=== PATIENT | female | born 1955 ===

== ENCOUNTER 2017-01-20 12:01 | Inpatient (IN) | payer OTHER, MEDICAID ==
--- NOTE | 2017-01-20 12:25 | ED PDOC ---
Arrival/HPI - General Chief Complaint: Chest Pain Time Seen by Provider: 01/20/17 12:07 Historian: Patient - History of Present Illness Narrative History of Present Illness (Text): 01/20/17 12:24 Patient is a 61 year old female whose past medical history includes pulmonary embolism, asthma, bronchitis, IVC filter placed last January, not on blood thinners , sent to the emergency department by PMD for evaluation of intermittent chest and back discomfort with shortness of breath for the past 3 days. Patient states it feels like a "ball going up and down" her chest and back. Patient notes some cough. She states this feels similar to her previous clot symptoms. Patient also reports nosebleed yesterday which resolved on its own. No other complaints at this time. PMD: Dr. Leung Time/Duration: < week Symptom Onset: Gradual Symptom Course: Intermittent Modifying Factors (Text): None Past Medical History - Provider Review Nursing Documentation Reviewed: Yes - Cardiac Hx Cardiac Disorders: Yes Other/Comment: MITRAL VALVE PROLAPSE - Pulmonary Hx Respiratory Disorders: Yes (PULMONARY EMBOLISM) - Neurological Hx Neurological Disorder: Yes Other/Comment: HX HEADACHES - HEENT Other/Comment: right torn retina - Endocrine/Metabolic Hx Endocrine Disorders: Yes Other/Comment: laisha's thyroid disease - Musculoskeletal/Rheumatological Hx Musculoskeletal Disorders: Yes Other/Comment: LEFT LEG EDEMA - Genitourinary/Gynecological Other/Comment: uterine mass - removed - Psychiatric Hx Substance Use: No - Surgical History Other/Comment: FIBROID TUMOR REMOVED - Anesthesia Hx Anesthesia: Yes Hx Anesthesia Reactions: No Hx Malignant Hyperthermia: No - Suicidal Assessment Feels Threatened In Home Enviroment: No Family/Social History - Physician Review Nursing Documentation Reviewed: Yes Family/Social History: Unknown Family HX Smoking Status: Former Smoker Hx Alcohol Use: No Hx Substance Use: No Allergies/Home Meds Allergies/Adverse Reactions: Allergies No Known Allergies Allergy (Verified 06/05/16 11:18) Home Medications: Home Meds Medication Instructions Recorded Confirmed Unobtainable 01/20/17 01/20/17 Review of Systems - Review of Systems Eyes: absent: Vision Changes ENT: absent: Hearing Changes Respiratory: SOB, Cough Cardiovascular: Chest Pain Gastrointestinal: absent: Abdominal Pain, Vomiting Genitourinary Female: absent: Dysuria, Frequency, Hematuria Musculoskeletal: Back Pain Skin: absent: Rash Neurological: absent: Headache Endocrine: absent: Diaphoresis Psychiatric: absent: Anxiety Physical Exam - Physical Exam Narrative Physical Exam (Text): Head: Atraumatic. Normocephalic. Eyes: PERRL. EOMI. Conjunctivae are not pale. ENT: Mucous membranes are moist and intact. Oropharynx is clear and symmetric. Neck: Supple. Full ROM. No JVD. No lymphadenopathy. Cardiovascular: Regular rate. Regular rhythm. No murmurs, rubs, or gallops. Distal pulses are 2+ and symmetric. Pulmonary/Chest: No evidence of respiratory distress. Mild expiratory wheeze. No rales or rhonchi. Abdominal: Soft and non-distended. There is no tenderness. No rebound, guarding, or rigidity. No organomegaly. Good bowel sounds. Back: No CVA tenderness. Extremities: No edema. No cyanosis. No clubbing. Full range of motion in all extremities. No calf tenderness. Skin: Skin is warm and dry. No petechiae. No purpura. Neurological: Alert, awake, and oriented to person, place, time, and situation. Normal speech. Psychiatric: Good eye contact. Normal interaction, affect, and behavior. Vital Signs Reviewed: Yes Vital Signs Temp Pulse Resp BP Pulse Ox 01/20/17 12:08 98.1 F 69 20 137/83 98 Temperature: Afebrile Blood Pressure: Normal Pulse: Regular Respiratory Rate: Normal Appearance: Positive for: Well-Appearing, Non-Toxic Pain Distress: None Mental Status: Positive for: Alert and Oriented X 3 Medical Decision Making ED Course and Treatment: Differential Diagnosis include but are not limited to: Pulmonary embolism vs aortic dissection vs coronary artery disease vs asthma Plan: Patient states she has had a IVC filter placed last January. Patient currently not hypoxic or tachycardic, although she has a prior history of PE, so will obtain CT emergently. Prior Visits: Notes and results from previous visits were reviewed. Patient was seen in the ED on 09/05/14 for shortness of breath and admitted for pulmonary embolism. As per previous notes, patient has a past medical history that includes deep vein thrombosis, pulmonary embolism, mitral valve prolapse, asthma, bronchitis, and pulmonary edema LAB RESULTS: Glucose 94 BUN 16 CREATININE 0.7 SODIUM 142 POTASSIUM 3.8 LDH 399 CPK 56 TROPONIN I <0.01 Progress Notes: PROCEDURE: CT Chest with contrast (Pulmonary Angiogram) Administrative Nursing Supervisor : Sherman Pena MD Report Date : 01/20/2017 13:49:32 IMPRESSION: No evidence of pulmonary embolism. Evaluation of lower lobe subsegmental artery branches is limited by respiratory motion artifact. Incidental stable 3.8 cm right adrenal mass, likely adrenal adenoma. Stable 9 mm high attenuation left upper pole renal mass. Correlation with ultrasound examination is advised on a nonemergent basis. Small calculus identified in cystic duct, nonobstructing. No additional abnormality. 01/20/17 14:03 Patient will be given nebulizer as she is noted to have mild wheezing. As she has had 3 day history of chest pain and shortness of breath, will admit to telemetry observation for further cardiac workup. Case discussed with Dr. Leung. Will consult Dr. Conn who has seen her in the past and Dr. Durham. - Lab Interpretations Lab Results: 01/20/17 12:20 Lab Results 01/20/17 12:20: WBC 5.6, RBC 5.14, Hgb 13.9, Hct 42.2, MCV 82.1, MCH 27.0, MCHC 32.9, RDW 14.4, Plt Count 240, MPV 9.2, Gran % 68.4 H, Lymph % (Auto) 23.7, Pocahontas % (Auto) 6.3 H, Eos % (Auto) 1.4 L, Baso % (Auto) 0.2, Gran # 3.81, Lymph # 1.3, Pocahontas # 0.4, Eos # 0.1, Baso # 0.01 - RAD Interpretation Radiology Orders: 01/20/17 12:11 ANGIO CHEST PE PROTOCOL [CT] Stat CHEST PORTABLE [RAD] Stat - EKG Interpretation EKG Interpretation (Text): 01/20/17 13:19 EKG at 12:11 normal sinus rhythm rate of [address] elevations Interpreted by ED Physician: Yes Type: 12 lead EKG - Medication Orders Current Medication Orders: Discontinued Medications Iodixanol (Visipaque 320 Mg/Ml 100 Ml) Confirm Administered Dose 100 ml IV .STK- MED ONE Stop: 01/20/17 13:03 - Scribe Statement The provider has reviewed the documentation as recorded by the Israel Urias Provider Scribe Attestation: All medical record entries made by the Sudhakaribvito were at my direction and personally dictated by me. I have reviewed the chart and agree that the record accurately reflects my personal performance of the history, physical exam, medical decision making, and the department course for this patient. I have also personally directed, reviewed, and agree with the discharge instructions and disposition. Disposition/Present on Arrival - Present on Arrival Any Indicators Present on Arrival: Yes History of DVT/PE: Yes History of Uncontrolled Diabetes: No Urinary Catheter: No History of Decub. Ulcer: No History Surgical Site Infection Following: None - Disposition Have Diagnosis and Disposition been Completed?: Yes Diagnosis: Chest pain, Dyspnea Disposition: HOSPITALIZED Disposition Time: 14:00 Patient Plan: Admission, Telemetry Condition: FAIR Discharge Instructions (ExitCare): Chest Pain (ED) Referrals: Sweetie Leung MD [Primary Care Provider] - Follow up with primary
[2017-01-20 12:30] LABS: ADD MANUAL DIFF? NO
[2017-01-20 12:33] LABS: BASO # 0.01 K/mm3 (0.0-2.0); BASO % 0.2 % (0.0-3.0); EOS # 0.1 (0.0-0.7); EOS % 1.4 % (1.5-5.0); GRAN # 3.81 (1.4-6.5); GRAN % 68.4 % (50.0-68.0); HEMATOCRIT 42.2 % (36.0-48.0); LYMPH # 1.3 (1.2-3.4); LYMPH % 23.7 % (22.0-35.0); MEAN CELL VOLUME 82.1 fL (80.0-105.0); MEAN CORPUSCULAR HGB CONC 32.9 g/dl (31.0-37.0); MEAN PLATELET VOLUME 9.2 fl (7.0-11.0); MONO # 0.4 (0.1-0.6); MONO % 6.3 % (1.0-6.0); PLATELET COUNT 240 10^3/uL (120.0-450.0); RED CELL DISTRIBUTION WIDTH 14.4 % (11.5-14.5); WHITE BLOOD COUNT 5.6 10^3/ul (4.5-11.0)
[2017-01-20 12:44] LABS: ALB/GLOB RATIO 1.1 (1.1-1.8); ALKALINE PHOSPHATASE 88 U/L (38-133); ALT/SGPT 21 U/L (7-56); AST/SGOT 18 U/L (15-39); BILIRUBIN,TOTAL 0.9 mg/dL (0.2-1.3); BLOOD UREA NITROGEN 16 mg/dL (7-21); CALCIUM 9.2 mg/dL (8.4-10.5); CARBON DIOXIDE 26 mmol/L (21-33); CHLORIDE 108 mmol/L (98-107); GFR AFRICAN-AMERICAN > 60; GLUCOSE,RANDOM 94 mg/dL (70-110); POTASSIUM 3.8 mmol/L (3.6-5.0); SODIUM 142 mmol/L (132-148); TOTAL PROTEIN 7.8 g/dL (5.8-8.3)
[2017-01-20 12:48] LABS: INR 0.99 (0.93-1.08); PARTIAL THROMBOPLASTIN TIME 25.4 Seconds (23.7-30.8)
[2017-01-20 12:55] LABS: URINE BILIRUBIN NEGATIVE (NEGATIVE); URINE BLOOD TRACE-INTACT (NEGATIVE); URINE GLUCOSE (UA) NEGATIVE (NEGATIVE); URINE KETONE NEGATIVE (NEGATIVE); URINE LEUKOCYTE ESTERASE NEGATIVE Leu/uL (NEGATIVE); URINE PROTEIN NEGATIVE mg/dL (<30 mg/dL); URINE UROBILINOGEN 0.2 E.U./dL (<1 E.U./dL)
[2017-01-20 12:58] LABS: URINE APPEARANCE CLEAR (CLEAR); URINE COLOR YELLOW (YELLOW)
[2017-01-20] MEDS ORDERED: Iodixanol 320 MG/ML 100 ML BOTTLE IV ONE (13:02)
[2017-01-20 13:12] LABS: URINE BACTERIA FEW (NEG); URINE RBC 0 - 2 /hpf (0-2); URINE WBC 0 - 2 /hpf (0-6)
[2017-01-20 13:16] LABS: TROPONIN I < 0.01 ng/mL
--- NOTE | 2017-01-20 13:51 | CT ---
PROCEDURE: CT Chest with contrast (Pulmonary Angiogram) HISTORY: r/o PE COMPARISON: 09/05/2014 TECHNIQUE: Axial computed tomography images were obtained of the chest in the pulmonary arterial phase of enhancement. Coronal and sagittal reformatted images were created and reviewed. Intravenous contrast dose: 100 mL Visipaque 320 Radiation dose: Total exam DLP = 671.77 mGy-cm. This CT exam was performed using one or more of the following dose reduction techniques: Automated exposure control, adjustment of the mA and/or kV according to patient size, and/or use of iterative reconstruction technique. FINDINGS: PULMONARY ARTERIES: Evaluation of the pulmonary arteries is limited by respiratory motion artifact. Subsegmental pulmonary artery branches, particularly in the lower lobes, are inadequately evaluated. There is no evidence of pulmonary embolism. There are no filling defects identified in the main, lobar and segmental pulmonary arteries. A filling defect was seen on prior examination in right lower lobe pulmonary artery branch. This is not evident on the current examination. AORTA: No acute findings. No thoracic aortic aneurysm. LUNGS: Unremarkable. No nodule, mass or pulmonary consolidation. PLEURAL SPACES: Unremarkable. No effusion or pneuomothorax. HEART: Unremarkable. No cardiomegaly. No significant pericardial effusion. LYMPH NODES: No lymphadenopathy. BONES, CHEST WALL: Unremarkable. No fracture or destructive lesion OTHER FINDINGS: Right adrenal mass, 3.8 cm in greatest dimension. 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 This is felt more likely to represent an adrenal adenoma. It is stable since 09/05/2014. It measures approximately 23 Hounsfield units in attenuation. There is 9 mm high attenuation exophytic mass arising from the upper pole of the left kidney, unchanged from prior examination. Nevertheless, correlation with ultrasound examination is suggested to rule out a solid neoplasm. There is a small nonobstructing calculus identified in the cystic duct. IMPRESSION: No evidence of pulmonary embolism. Evaluation of lower lobe subsegmental artery branches is limited by respiratory motion artifact. Incidental stable 3.8 cm right adrenal mass, likely adrenal adenoma. Stable 9 mm high attenuation left upper pole renal mass. Correlation with ultrasound examination is advised on a nonemergent basis. Small calculus identified in cystic duct, nonobstructing. No additional abnormality.
[2017-01-20] MEDS ORDERED: Albuterol-Ipratrop 3 mg / 0.5 (3 ml) UD IH STA (14:46)
[2017-01-20 14:58] LABS: D DIMER 0.88 mg/L FEU (0-0.50)
--- NOTE | 2017-01-20 15:30 | RAD ---
HISTORY: Chest pain COMPARISON: 02/12/2016. FINDINGS: LUNGS: The lungs are well inflated and clear. PLEURA: No significant pleural effusion identified, no pneumothorax apparent. CARDIOVASCULAR: Normal. OSSEOUS STRUCTURES: No significant abnormalities. VISUALIZED UPPER ABDOMEN: Normal. OTHER FINDINGS: None. IMPRESSION: No active pulmonary disease.
[2017-01-20 16:54] LABS: IRON 109 ug/dL (45-180)
--- NOTE | 2017-01-20 17:42 | CARD ---
APPROVED REPORT EKG Measurement Heart [id number] <Conclusion> Normal sinus rhythm Possible Left atrial enlargement Borderline ECG
[2017-01-20 18:33] VITALS: BMI 32.5
[2017-01-20 20:42] LABS: TROPONIN I < 0.01 ng/mL
[2017-01-20] MEDS ORDERED: Albuterol-Ipratrop 3 mg / 0.5 (3 ml) UD IH PRN (21:42)
[2017-01-20 22:18] LABS: FOLATE 15.2 ng/mL
[2017-01-21 08:08] LABS: HEMATOCRIT 39.9 % (36.0-48.0); MEAN CELL VOLUME 82.3 fL (80.0-105.0); MEAN CORPUSCULAR HEMOGLOBIN 26.6 pg (25.0-35.0); MEAN CORPUSCULAR HGB CONC 32.3 g/dl (31.0-37.0); MEAN PLATELET VOLUME 9.3 fl (7.0-11.0); RED CELL DISTRIBUTION WIDTH 14.5 % (11.5-14.5); WHITE BLOOD COUNT 4.9 10^3/ul (4.5-11.0)
[2017-01-21 08:20] LABS: BLOOD UREA NITROGEN 14 mg/dL (7-21); CARBON DIOXIDE 27 mmol/L (21-33); CHLORIDE 105 mmol/L (95-110); GFR AFRICAN-AMERICAN > 60; GLUCOSE,RANDOM 91 mg/dL (70-110); POTASSIUM 4.2 mmol/L (3.6-5.0); SODIUM 140 mmol/L (132-148)
[2017-01-21 11:54] LABS: TROPONIN I < 0.01 ng/mL
--- NOTE | 2017-01-21 14:12 | CON ---
DATE: 01/21/2017 SERVICE: Cardiology. REASON FOR CONSULTATION: Chest pain. BRIEF CLINICAL HISTORY: A 61-year-old female with past medical history significant for pulmonary emb olism in 2014, DVT, is status post IVC filter, bronchitis, off anticoagulation, came in with complain t of feels that bubbles goes into the back and then comes to the front sometimes, and back discomfort , sometimes chest discomfort and bubbles like coming from the stomach, goes up. Denies any chest cherelle n, denies any dyspnea on exertion, no chest pain on exertion. PAST MEDICAL HISTORY: History of pulmonary embolism, asthma, bronchitis, IVC filter. Previous cardiac workup as follows: The patient had a stress test 09/10/2014 that shows normal wall motion, ejection fraction 71%, fixed defect, no reversible ischemia, done by Dr. Oshea dated 015. The patient had echocardiography 09/08/2014 that showed normal chamber size, left atrial enlarg ement, trace mitral regurgitation, mild tricuspid regurgitation, RV systolic pressure 38. SOCIAL HISTORY: Denies any smoking. Denies any history of alcohol abuse. CURRENT MEDICATIONS: Unobtainable. REVIEW OF SYSTEMS: As per HPI. PHYSICAL EXAMINATION: VITAL SIGNS: Temperature afebrile, heart rate ____, blood pressure ____. HEENT: PERRLA. Extraocular muscles intact. NECK: Supple. No carotid bruits. No thyromegaly. CHEST: Clear to auscultation. HEART: S1, S2 regular. ABDOMEN: Soft. EXTREMITIES: Clubbing and cyanosis negative. LABORATORY DATA: Blood workup as follows: WBC 4.9, hemoglobin 12.6, hematocrit 39.9, platelet count 221. Chemistry shows sodium 140, potassium 4.2, chloride 105, carbon dioxide 27, anion gap of 12, B UN 14, creatinine 0.8. Troponin 0.01 x 2 negative. EKG shows normal sinus, heart rate 71, left atrial abnormality. IMPRESSION: Atypical chest pain. Doubt it is a myocardial infarction. EKG is pretty benign, most l ikely gastroesophageal reflux type of symptoms. History of a stress test in 08/2014, negative. Echo was also ____ preserved left ventricular function, history of deep venous thrombosis, pulmonary embo lism, off anticoagulation, history of inferior vena cava filter, obesity, history of chronic polyp. RECOMMENDATION: We will start a proton pump inhibitor. Ordered third set of troponin. If remains n egative, maybe patient can discharge home, workup as outpatient ____ repeat a stress test outpatient. Will transfer the care on Monday to Dr. Sherman Conn. Thank you, Dr. Leung, for providing the opportunity in taking care of the patient. Grecia Gifford MD cc: [id number] TT: 01/21/2017 14:11:43 Confirmation # [id number] Dictation # [id number] rn
--- NOTE | 2017-01-21 19:29 | CON ---
DATE: 01/21/2017 REFERRING PHYSICIAN: Dr. Leung. REASON FOR CONSULT: History of PE, admitted with shortness of breath. HISTORY OF PRESENT ILLNESS: This is a 61-year-old female with past medical history significant for c hronic obstructive lung disease, pulmonary embolism, bronchitis, history of IVC filter because of rec urrent nasal bleed and could not take anticoagulation, now comes in because not feeling well, feeling something is in the chest with shortness of breath. In the ER, had a CT done, which was negative fo r PE, no infiltrate or effusion reported. There is no significant cough, but gets short of breath. Does have a history of hiatal hernia. There is no nausea, no vomiting, no diarrhea, no leg pain or l eg swelling. PAST MEDICAL HISTORY: Pulmonary embolism, history of IVC filter, could not anticoagulate because of recurrent nasal bleed, chronic obstructive lung disease, bronchitis, and a hiatal hernia. SOCIAL HISTORY: Nonsmoker, nondrinker. FAMILY HISTORY: No significant cardiopulmonary disease reported. MEDICATIONS: She is on aspirin 81 mg daily, albuterol-Atrovent nebulizer q. 6 hours p.r.n., Pepcid 4 0 mg daily, Tylenol p.r.n. basis. REVIEW OF SYSTEMS: No headache, no rhinitis. Has some shortness of breath and cough. No chest pain . Has some epigastric discomfort. No abdominal pain. No dysuria. No leg pain or leg swelling. PHYSICAL EXAMINATION: GENERAL: Lying in the bed in no acute distress. VITAL SIGNS: Temp is 98, heart rate is 77, respiratory rate is 22, blood pressure 106/56, pulse ox 9 7% on room air. HEENT: Moist mucous membranes. Crowded airway. NECK: Supple. No JVD. LUNGS: Has a fair airflow with few rhonchi. HEART: S1, S2. ABDOMEN: Positive bowel sounds, soft, mild epigastric tenderness. EXTREMITIES: There is no edema. NEUROLOGIC: Awake, alert, follows simple commands. LABORATORY DATA: Shows hemoglobin 12.9, hematocrit 39.9, WBC 4.9, platelets 221. INR is 0.99, 25 and D-dimer 0.88. Sodium 140, potassium 4.2, chloride 105, bicarbonate 27. BUN is 14, creatinin e 0.8, glucose is 91, calcium is 9.0. LDH is 372. Troponin less than 0.01. TSH 2.34. CAT scan of the chest is negative for PE. IMPRESSION AND PLAN: History of pulmonary embolism, deep venous thrombosis, history of inferior vena cava filter, obstructive lung disease, obesity, anxiety disorder, history of hiatal hernia. Case di scussed with Dr. Leung in detail. Continue inhaled bronchodilator. Add Protonix 40 mg daily. Margot tawana prophylaxis. SCD to lower extremity. We will need pulmonary function test and follow up as an o utpatient. Thank you and will follow with you. Grecia Durham MD cc: [id number] TT: 01/21/2017 19:28:29 Confirmation # [id number] Dictation # [id number] mn
[2017-01-21] MEDS: MethylPREDNISolone 40 mg Vial IVP SCH (21:13)
[2017-01-22] MEDS: MethylPREDNISolone 40 mg Vial IVP SCH (09:31)
[2017-01-22 09:35] VITALS: O2SAT 98
--- NOTE | 2017-01-22 14:00 | PN ---
DATE: 01/22/2017 REASON FOR DICTATION: Covering Dr. Sherman Conn. REASON FOR CONSULTATION: Chest pain, atypical. BRIEF CLINICAL HISTORY: A 61-year-old female with a past medical history significant for pulmonary e mbolism in 2015, DVT in the past, IVC filter, bronchitis, off anticoagulation, came with atypical shea st pain, bubble in the chest and back. So far, patient has troponin negative. Has a stress test don e by Dr. Oshea on 09/10/2014, it was negative. Echocardiography 09/08/2014 shows normal chamber siz e, left atrial enlargement, trace mitral regurgitation, mild tricuspid regurgitation, right ventricul ar systolic pressure 38. The patient denies any further episode of chest pain, shortness of breath, any palpitation. PHYSICAL EXAMINATION: VITAL SIGNS: Temperature afebrile, heart rate 90, blood pressure 120/78. HEENT: PERRLA. Extraocular muscles intact. NECK: Supple. No carotid bruits. No thyromegaly. CHEST: Clear to auscultation. HEART: S1, S2 regular. ABDOMEN: Soft. EXTREMITIES: Clubbing, cyanosis negative. BLOOD WORKUP: WBC 4.9, hemoglobin 12.9, hematocrit 39.9, platelet count 221. Chemistry shows sodium 140, potassium 4.2, chloride 105, carbon dioxide 27, anion gap of , BUN 14, creatinine 0.8. Tr oponin 0.09. IMPRESSION: Atypical chest pain, history of a stress test done in the past, was negative on 09/10/19 15. Echo on 09/08/2014, normal chamber size except left atrial enlargement, trace mitral regurgitati on, mild tricuspid regurgitation. RECOMMENDATION: Discontinue telemetry. Consider stress test as outpatient. If the patient remains in-house, we will turn over care to Dr. Sherman oCnn on Monday. Thank you, Dr. Leung, for providing us the opportunity in taking care of the patient. Grecia Gifford MD cc:Sweetie Leung MD [phone] TT: 01/22/2017 13:59:27 Confirmation # [id number] Dictation # [id number]
--- NOTE | 2017-01-22 16:00 | CON ---
DATE: 01/22/2017 CHIEF COMPLAINT: Chest pain, shortness of breath. HISTORY OF PRESENT ILLNESS: This is a 61-year-old female whose past medical history includes a pulmo nary embolism, asthma, bronchitis and sleep apnea who is having chest discomfort and shortness of melvi ath. The patient was seen in the ER and admitted for these complaints. The patient has been complai kelsey of feeling like something going up and down in her chest and back. During her evaluation, the idris ibarra was noted to have an indeterminate renal lesion on her chest CT. The patient reports she has had this for many years. She has been followed urologically by Dr. Flores at [facility]; however, due to a recent insurance change, she has not seen him for followup. She reports nothing was being done other than serial imaging on this mass in the past. A consultation was requested regarding this. The patient reports no voiding issues. She denies any dysuria, urinary frequency, urgency or gross hemat uria. She denies any weight loss. PAST MEDICAL HISTORY: Significant for asthma, bronchitis, pulmonary embolism, renal mass, mitral tyree ve prolapse, thyroiditis, uterine fibroids. MEDICATIONS: Currently include aspirin, doxycycline, DuoNeb, Pepcid, Solu-Medrol, and Tylenol. ALLERGIES: No known drug allergies. FAMILY HISTORY: Noncontributory. SOCIAL HISTORY: The patient denies any current smoking or ETOH use. REVIEW OF SYSTEMS: Positive for respiratory system as per the HPI. For musculoskeletal, does compla in of left-sided back pain and left-sided chest pain, which she feels goes up and down with breathing . Other systems are negative other than endocrine system where she does report a history of thyroidi tis in the past. PHYSICAL EXAMINATION: GENERAL: The patient is seen in her room. She is awake and alert, answering questions. She is in n o acute distress. VITAL SIGNS: She is afebrile. Temp 97.6, pulse of 90, BP 120/78, respirations 20. NECK: Supple. There is no palpable thyroid nodule. There is no adenopathy noted. CHEST: Reveals a normal inspiratory effort. CARDIAC: Shows a positive S1, S2. There is trace peripheral edema noted of her lower extremities. ABDOMEN: Obese, soft, nontender, nondistended. There is no hepatosplenomegaly. There is no costove rtebral angle tenderness. There is no palpable mass. GENITOURINARY: Her bladder is not palpably distended. EXTREMITIES: Shows no cyanosis. There is mild peripheral edema noted. LABORATORY DATA: WBC count was normal. Hemoglobin and hematocrit normal. BUN 14 with a creatinine 0.8 with a GFR greater than 60. Urinalysis showed 0-2 RBC, 0-2 WBC, negative for nitrites. RADIOLOGIC EXAMINATION: The patient had a CT exam of the chest which showed a right adrenal lesion, 3.8 cm, previously described as a myelolipoma and felt to be more of an adrenal adenoma. It is stabl e since 08/2014. There is a 9 mm exophytic mass arising from the upper pole of the left kidney that is unchanged from prior examination as well. Renal ultrasound was suggested to rule out a solid neop lasm. There is a small nonobstructing calculus noted in the cystic duct. IMPRESSION AND PLAN: This is a 61-year-old female admitted with chest pain and shortness of breath, history of pulmonary embolism in the past. On imaging, she does not appear to have pulmonary embolis m. Clinically, she is doing well with resolution of her symptoms. Urologically, the patient reports a history of a small renal mass which had been followed for years. My recommendation would be to ob tain a CT scan of the abdomen and pelvis without and with IV contrast to see if this is a solid enhan cing mass. If this appears to be a solid enhancing mass, the patient will need to have it removed at some point. As it is small and exophytic, my recommendation would be for a partial nephrectomy. Th e patient does have significant other medical issues which are being addressed at this time. I have discussed this with the patient. She understands and agrees to outpatient urologic followup. No acu te emergent urologic intervention is necessary at this time. Pedro Luis Sharpe MD cc: [id number] TT: 01/22/2017 15:59:34 Confirmation # [id number] Dictation # [id number] mn
[2017-01-22 18:14] VITALS: BP 115/70; PULSE 95; RESP 18; TEMP 98.9
--- NOTE | 2017-01-22 20:43 | PN ---
DATE: 01/22/2017 REFERRING PHYSICIAN: Dr. Leung. SUBJECTIVE: He is sitting side of the bed, feels better. No headache, no rhinitis, breathing is bet ter. No nausea, no vomiting, no diarrhea. No leg pain or leg swelling. OBJECTIVE: GENERAL: No acute distress. VITAL SIGNS: Temp is 98, heart rate is 95, respiratory rate is 20, blood pressure 115/70, pulse ox 9 8% on room air. HEENT: Moist mucous membranes. Crowded airway. NECK: Supple. No JVD. LUNGS: Has a fair airflow with prolonged expiratory phase. HEART: S1 and S2. ABDOMEN: Positive bowel sounds and mild epigastric pain and tenderness. EXTREMITIES: There is no edema. NEUROLOGIC: Awake, alert, follows simple command. MEDICATIONS: She is on aspirin 81 mg daily, doxycycline 100 mg twice a day, albuterol-Atrovent nebul izer q. 6 hours, Pepcid 20 mg daily, Solu-Medrol 20 mg q. 12 hours, Tylenol on a p.r.n. basis. LABORATORY DATA: Shows hemoglobin 12.9, hematocrit 39.9, WBC 4.9, platelet is 221. Sodium 140, pota ssium 4.2, chloride 105, bicarbonate 27, BUN 14, creatinine 0.8, glucose is 91, calcium is 9.0, lacta te dehydrogenase is 372. Troponin is less than 0.01. TSH is 2.34. IMPRESSION AND PLAN: History of pulmonary embolism, deep venous thrombosis, history of IVC filter, c ould not anticoagulate because of the acute nasal bleed, obstructive lung disease, obesity, anxiety d isorder, hiatal hernia. Pulmonary point of view, doing okay. May discharge home with taper dose of steroids, antibiotics for 5 days and inhaled bronchodilator. Gastric prophylaxis. Sequential compre ssion device to lower extremity. Outpatient pulmonary function test. Thank you and will follow with you. Grecia Durham MD cc: [id number] TT: 01/22/2017 20:42:42 Confirmation # [id number] Dictation # [id number] mn
--- NOTE | 2017-01-23 08:23 | HP ---
CHIEF COMPLAINT: Chest pain and shortness of breath. The patient is my private patient, HISTORY OF PRESENT ILLNESS: This is a 61-year-old female with past medical history for pulmonary emboli, DVT, has IVC filter, history of bronchitis, adrenal densities. Off the Coumadin due to repeated epistaxis, now came with chest pain. Actually patient was seen in my office, I sent her to the Emergency Room, chest pain going to the back, comes to the front sometimes, but back discomfort. According to her she has feeling of bubbles from the stomach to the chest. No nausea, vomiting, or diarrhea. No hematuria or hematochezia. Complaining about shortness of breath. PAST MEDICAL HISTORY: Pulmonary embolism, asthma, bronchitis, SOCIAL HISTORY: No smoking, no drugs, no ethanol. CURRENT MEDICATIONS: Reviewed by me. REVIEW OF SYSTEMS: The patient is seen and examined on the bedside on the telemetry, looks comfortable. Shortness of breath is better. Chest pain is better. PHYSICAL EXAMINATION: VITAL SIGNS: Temperature 98.6, heart rate 70, blood pressure 120/80, respiratory rate 20. HEENT: Head normocephalic, atraumatic. Eyes: PERRLA. Extraocular muscles intact. Conjunctivae clear. Nose patent. NECK: Supple. No bruit, JVD or thyromegaly. CHEST: Bilaterally symmetrical. HEART: S1, S2 positive. LUNGS: Clear to auscultation. ABDOMEN: Soft. Bowel sounds positive. No organomegaly. EXTREMITIES: No edema, no cyanosis. NEUROLOGIC: moving all 4 extremities. No focal deficit. LABORATORY DATA: White blood cells 4.9, hemoglobin 12.6, hematocrit 38, platelets of 221. Chemistry: Sodium 140, potassium 4.2, BUN 14, creatinine 0.8. ASSESSMENT AND PLAN: The patient with history of pulmonary emboli was on Coumadin and having repeat epistaxis, DC comedine by dr Galvez , The patient feeling she has bubbles in the chest. Gastrointestinal and deep venous thrombosis prophylaxis. Discussion done with Dr. Durham. Repeat labs. Waiting for cardiology input. We will follow up. Sweetie Leung MD cc: [id number] TT: 01/21/2017 19:13:04 jn MTDD
== END 2017-01-22 19:25 | disposition home or self-care (01) | DRG 313 ==
LOC: ED 12:01 → ERH 14:03 → 2RNO 16:24 → OBSVTOIN 01-21 18:02 → 3RNO 01-21 18:36
PROVIDERS: ADMIT Internal Medicine; ATTEND Internal Medicine
DX: R07.89 Other chest pain (principal); K21.9 Gastro-esophageal reflux disease without esophagitis; N28.89 Other specified disorders of kidney and ureter; J44.9 Chronic obstructive pulmonary disease, unspecified; E66.9 Obesity, unspecified; R04.0 Epistaxis; K44.9 Diaphragmatic hernia without obstruction or gangrene; G47.30 Sleep apnea, unspecified; Z86.711 Personal history of pulmonary embolism; Z86.718 Personal history of other venous thrombosis and embolism

== ENCOUNTER 2017-12-07 10:27 | Day surgery (SDC) | payer OTHER ==
[2017-11-29 11:01] VITALS: BMI 30.9
[2017-12-07] MEDS ORDERED: Propofol 10 mg/ml Inj (20 ML) ONE (12:33)
[2017-12-07] MEDS ORDERED: Sodium Chloride 0.9% 1,000 ML IV SCH (13:00)
[2017-12-07 13:12] VITALS: RESP 18; TEMP 98.2
[2017-12-07 13:49] VITALS: BP 127/65; PULSE 62; O2SAT 97
== END 2017-12-07 14:16 | disposition home or self-care (01) ==
LOC: ENDO 10:27
PROVIDERS: ATTEND Internal Medicine
DX: K63.5 Polyp of colon (principal); K57.30 Diverticulosis of large intestine without perforation or abscess without bleeding; K64.8 Other hemorrhoids; K62.5 Hemorrhage of anus and rectum; K59.00 Constipation, unspecified
CPT/HCPCS: 45380; 88305; J2001; J2704; J7040 ×2